=== PATIENT | male | born 1960 | race Caucasian/White ===

== ENCOUNTER → 2020-05-14 | Outpatient (CLI) | payer OTHER ==
[~2020-05-14] MED LIST: FENTANYL PF 250 MCG/5ML ONE; HYDR-3248 PO; MIDAZOLAM 1 MG/ML, 2ML ONE; OXYC80TA25 PO; PANT40TA6 PO
== END | disposition home or self-care (01) ==
LOC: STAR 14:11
PROVIDERS: ATTEND Emergency Medicine
DX: Z20.822 Contact with and (suspected) exposure to COVID-19 (principal)
CPT/HCPCS: U0003

== ENCOUNTER 2020-05-16 09:30 | Inpatient (IN) | payer OTHER ==
[~2020-05-16] VITALS: Ht 180.3 cm; Wt 93.3 kg
[~2020-05-16 09:30] MED LIST changes: -FENTANYL PF 250 MCG/5ML ONE; -MIDAZOLAM 1 MG/ML, 2ML ONE; -PANT40TA6 PO
[2020-05-16] MEDS ORDERED: KETOROLAC 60 MG/2 ML ONE (10:36)
[2020-05-16] MEDS ORDERED: TRANEXAMIC ACID 100 MG/ML, 10ML ONE (10:36)
[2020-05-16] MEDS ORDERED: VANCOMYCIN 1,000 MG ONE ×5 (10:37→13:08)
[2020-05-16] MEDS ORDERED: SODIUM CHLORIDE 0.9% 50 ML ONE (10:37)
[2020-05-16] MEDS ORDERED: EPINEPHRINE 1 MG/ML, 1ML ONE (10:37)
[2020-05-16] MEDS ORDERED: ROPIvacaine/PF 0.2%, 20 ML ONE (10:37)
[2020-05-16] MEDS ORDERED: TOBRAMYCIN SULFATE 1.2 GM IMP ONE (10:55)
[2020-05-16] MEDS ORDERED: LACTATED RINGERS 1,000 ML IV SCH (11:00)
[2020-05-16] MEDS ORDERED: CHLORHEXIDINE 15 ML UDC MM ONE (11:00)
[2020-05-16] MEDS ORDERED: PANT40TA6 PO (11:01)
[2020-05-16 11:32] LABS: INTERNATIONAL NORMALIZED RATIO 1.09 (0.93-1.1); PROTHROMBIN TIME 11.6 Seconds (9.6-11.5)
[2020-05-16] MEDS ORDERED: HYDROmorphone 2 MG/ML, 1ML ONE ×6 (11:43→15:59)
[2020-05-16] MEDS ORDERED: KETAMINE 10 MG/ML, 20ML ONE (11:44)
[2020-05-16] MEDS ORDERED: ACETAMINOPHEN 325 MG TABLET PO PRN (13:30)
[2020-05-16] MEDS ORDERED: EPHEDRINE 50 MG/ML, 1ML IVPush PRN (13:30)
[2020-05-16] MEDS ORDERED: MEPERIDINE/PF 25MG/0.5ML IVPush PRN (13:30)
[2020-05-16] MEDS ORDERED: PROMETHAZINE 25 MG/ML, 1ML IVPush PRN (13:30)
[2020-05-16] MEDS ORDERED: OXYcodone 5 MG/5 ML ORAL.SOL UDC PO PRN (13:30)
[2020-05-16] MEDS ORDERED: HALOPERIDOL 5 MG/ML IV PRN (13:30)
[2020-05-16] MEDS ORDERED: METOPROLOL 1 MG/ML, 5ML IV PRN (13:30)
[2020-05-16] MEDS ORDERED: DIPHENHYDRAMINE 50 MG/ML, 1ML IVPush PRN (13:30)
[2020-05-16] MEDS ORDERED: hydrALAzine 20 MG/ML, 1ML IV PRN (13:30)
[2020-05-16] MEDS ORDERED: METOCLOPRAMIDE 5 MG/ML, 2ML IVPush PRN (13:30)
[2020-05-16] MEDS ORDERED: LABETALOL 5MG/ML, 20ML IV PRN (13:30)
[2020-05-16] MEDS ORDERED: ONDANSETRON 2MG/ML, 2ML IVPush PRN (13:30)
[2020-05-16] MEDS ORDERED: METHOCARBAMOL 1,000 MG in DEXTROSE 5% 100 ML IV PRN (13:30)
[2020-05-16] MEDS ORDERED: OxyconTIN ER 40 MG TAB.ER PO ONE (14:00)
[2020-05-16] MEDS ORDERED: FENTANYL PF 100 MCG/2ML ONE ×4 (14:43→15:59)
[2020-05-16] MEDS: FENTANYL PF 100 MCG/2ML IV PRN ×5 (14:46→16:20)
[2020-05-16] MEDS: HYDROmorphone 1 MG/ML, 1ML INJ IVPush PRN ×8 (14:49→16:20)
[2020-05-16] MEDS ORDERED: DIAZEPAM 5 MG/ML, 2ML ONE (14:56)
[2020-05-16] MEDS: DIAZEPAM 5 MG/ML, 2ML IVPush PRN ×2 (14:59→15:14)
[2020-05-16] MEDS: ACETAMINOPHEN 325 MG TABLET PO SCH ×3 (15:00→22:47)
[2020-05-16] MEDS ORDERED: ONDANSETRON 4 MG TABLET PO PRN (15:00)
[2020-05-16] MEDS ORDERED: VANCOMYCIN PER PHARMACY MC PRN (15:00)
[2020-05-16] MEDS ORDERED: HYDROmorphone 1 MG/ML, 1ML INJ IV PRN ×2 (15:00→17:30)
[2020-05-16] MEDS ORDERED: OXYcodone IR 5MG TABLET PO PRN (15:00)
[2020-05-16] MEDS ORDERED: MEPERIDINE/PF 100 MG/ML ONE (15:25)
[2020-05-16] MEDS ORDERED: ACETAMINOPHEN 650 MG/20.3 ML UDC ONE (15:49)
[2020-05-16] MEDS ORDERED: OXYcodone 5 MG/5 ML ORAL.SOL UDC ONE ×2 (15:50→15:59)
[2020-05-16] MEDS ORDERED: PROPOFOL 10 MG/ML, 20ML ONE (16:08)
[2020-05-16] MEDS ORDERED: CEFAZOLIN 1,000 MG ONE (16:08)
[2020-05-16] MEDS ORDERED: hydrALAzine 20 MG/ML, 1ML ONE (16:08)
[2020-05-16] MEDS ORDERED: ONDANSETRON 2MG/ML, 2ML ONE (16:08)
[2020-05-16] MEDS ORDERED: DEXAMETHASONE 4 MG/ML, 1ML ONE (16:08)
[2020-05-16] MEDS ORDERED: KETOROLAC 30 MG/1 ML IM SCH (17:30)
[2020-05-16] MEDS ORDERED: PHARMACOKINETIC MONITORING MC PRN (18:00)
[2020-05-16] MEDS ORDERED: VANCOMYCIN PMX 1GM/200ML 200 ML IV ONE ×2 (18:00→21:00)
[2020-05-16] MEDS: POTASSIUM CHLORIDE 20 MEQ in D5%-0.45% NACL 1,000 ML IV SCH (18:39)
[2020-05-16] MEDS: KETOROLAC 30 MG/1 ML IVPush SCH (18:39)
[2020-05-16] MEDS ORDERED: KETOROLAC 30 MG/1 ML IVPush SCH ×2 (19:00→23:30)
[2020-05-16 19:02] VITALS: BP 130/82
[2020-05-16] MEDS: PANTOPRAZOLE 40MG TABLET PO SCH (20:16)
[2020-05-16] MEDS: OXYcodone IR 5MG TABLET PO PRN (20:16)
[2020-05-16] MEDS: DOCUSATE 100 MG CAPSULE PO SCH (20:16)
[2020-05-16] MEDS: CEFAZOLIN PMX 1GM/50ML 50 ML IVPB SCH (21:23)
[2020-05-16] MEDS: OxyconTIN ER 40 MG TAB.ER PO SCH (22:47)
[2020-05-17 00:14] VITALS: BP 147/85
[2020-05-17] MEDS: KETOROLAC 30 MG/1 ML IVPush SCH ×4 (00:55→20:48)
[2020-05-17] MEDS: OXYcodone IR 5MG TABLET PO PRN ×5 (01:33→21:06)
[2020-05-17] MEDS: ACETAMINOPHEN 325 MG TABLET PO SCH ×5 (03:02→20:47)
[2020-05-17 04:12] VITALS: BP 130/77
[2020-05-17] MEDS: ASPIRIN 81 MG TABLET EC PO SCH (05:37)
[2020-05-17] MEDS: POTASSIUM CHLORIDE 20 MEQ in D5%-0.45% NACL 1,000 ML IV SCH ×2 (05:37→20:00)
[2020-05-17] MEDS: CEFAZOLIN PMX 1GM/50ML 50 ML IVPB SCH (05:38)
[2020-05-17] MEDS: PANTOPRAZOLE 40MG TABLET PO SCH ×2 (05:38→20:47)
[2020-05-17 05:43] LABS: CREATININE 0.89 mg/dL (0.7-1.3)
[2020-05-17 08:00] VITALS: BP_SYST 139; BP_SYST 97; BP_DIAS 62; BP_DIAS 70
[2020-05-17] MEDS ORDERED: OxyconTIN ER 20 MG TAB.ER ONE ×2 (08:48→20:44)
[2020-05-17] MEDS: DOCUSATE 100 MG CAPSULE PO SCH ×2 (08:56→21:00)
[2020-05-17] MEDS: OxyconTIN ER 40 MG TAB.ER PO SCH ×2 (08:56→20:47)
[2020-05-17] MEDS ORDERED: VANCOMYCIN 1,700 MG in SODIUM CHLORIDE 0.9% 250 ML IV SCH (10:00)
[2020-05-17 11:49] LABS: HCT (SEDRATE) 26.3 % (39.2-51.8)
[2020-05-17 11:50] LABS: BASOPHILS % (AUTO) 0 % (0-1); EOSINOPHILS % (AUTO) 1 % (1-7); LYMPHOCYTES % (AUTO) 13 % (22-44); MEAN CORPUSCULAR HEMOGLOBIN 27.5 pg (27.5-34.5); MEAN CORPUSCULAR HGB CONC 33.9 g/dL (33.2-36.2); MEAN PLATELET VOLUME 6.8 fL (7.4-10.4); MONOCYTES % (AUTO) 7 % (2-9); NEUTROPHILS % (AUTO) 79 % (42-75); PLATELET COUNT 439 x10^3/uL (130-400); RED BLOOD COUNT 3.12 x10^6/uL (4.38-5.82); RED CELL DISTRIBUTION WIDTH 13.7 % (9.4-14.8)
[2020-05-17 11:55] LABS: MD NO
[2020-05-17 12:06] LABS: ALBUMIN 2.8 g/dL (3.4-5.0); ANION GAP 6 mmol/L (5-15); CALCIUM 9.5 mg/dL (8.5-10.1); CHLORIDE 105 mmol/L (98-107)
[2020-05-17 12:19] LABS: ALANINE AMINOTRANSFERASE 15 U/L (12-78); ALKALINE PHOSPHATASE 44 U/L (45-117); BILIRUBIN,TOTAL 0.3 mg/dL (0.2-1.0); CREATININE 0.83 mg/dL (0.7-1.3)
[2020-05-17 12:27] VITALS: BP 144/72
[2020-05-17] MEDS: DAPTOMYCIN 700 MG in SODIUM CHLORIDE 0.9% 100 ML IVPB SCH ×2 (12:28→12:42)
[2020-05-17 19:07] VITALS: BP 147/84
[2020-05-17] MEDS: GABAPENTIN 300 MG CAPSULE PO PRN (22:07)
[2020-05-18] MEDS: KETOROLAC 30 MG/1 ML IVPush SCH ×4 (01:44→20:06)
[2020-05-18] MEDS: OXYcodone IR 5MG TABLET PO PRN ×6 (01:44→23:30)
[2020-05-18] MEDS: ACETAMINOPHEN 325 MG TABLET PO SCH ×6 (01:44→23:30)
[2020-05-18 01:58] VITALS: BP 139/85
[2020-05-18] MEDS: POTASSIUM CHLORIDE 20 MEQ in D5%-0.45% NACL 1,000 ML IV SCH ×2 (06:06→13:07)
[2020-05-18] MEDS: ASPIRIN 81 MG TABLET EC PO SCH (06:23)
[2020-05-18] MEDS: PANTOPRAZOLE 40MG TABLET PO SCH ×2 (06:23→20:06)
[2020-05-18 07:29] VITALS: BP 130/80
[2020-05-18] MEDS: DOCUSATE 100 MG CAPSULE PO SCH ×2 (07:58→20:06)
[2020-05-18] MEDS: OxyconTIN ER 40 MG TAB.ER PO SCH ×2 (07:58→21:11)
[2020-05-18] MEDS ORDERED: POLYETHYLENE GLYCOL 17 GM PACKET PO PRN (08:30)
[2020-05-18] MEDS ORDERED: MAGNESIUM HYDROXIDE 8%, 30ML UDC PO PRN (08:30)
[2020-05-18 12:21] VITALS: BP 122/73
[2020-05-18] MEDS: DAPTOMYCIN 700 MG in SODIUM CHLORIDE 0.9% 100 ML IVPB SCH (13:07)
[2020-05-18 19:20] VITALS: BP 127/83
[2020-05-19 00:03] VITALS: BP 122/79
[2020-05-19] MEDS: POTASSIUM CHLORIDE 20 MEQ in D5%-0.45% NACL 1,000 ML IV SCH ×3 (02:18→22:30)
[2020-05-19] MEDS: KETOROLAC 30 MG/1 ML IVPush SCH ×5 (03:30→22:47)
[2020-05-19] MEDS: ACETAMINOPHEN 325 MG TABLET PO SCH ×5 (03:39→21:17)
[2020-05-19] MEDS: OXYcodone IR 5MG TABLET PO PRN ×6 (03:39→21:16)
[2020-05-19 04:51] LABS: BASOPHILS % (AUTO) 1 % (0-1); EOSINOPHILS % (AUTO) 6 % (1-7); LYMPHOCYTES % (AUTO) 38 % (22-44); MEAN CORPUSCULAR HEMOGLOBIN 27.8 pg (27.5-34.5); MEAN CORPUSCULAR HGB CONC 34.1 g/dL (33.2-36.2); MEAN PLATELET VOLUME 6.2 fL (7.4-10.4); MONOCYTES % (AUTO) 9 % (2-9); NEUTROPHILS % (AUTO) 47 % (42-75); PLATELET COUNT 439 x10^3/uL (130-400); RED BLOOD COUNT 3.28 x10^6/uL (4.38-5.82)
[2020-05-19 04:52] LABS: MD NO
[2020-05-19 04:57] LABS: ALANINE AMINOTRANSFERASE 15 U/L (12-78); ALBUMIN 2.5 g/dL (3.4-5.0); ANION GAP 9 mmol/L (5-15); CALCIUM 9.6 mg/dL (8.5-10.1); CHLORIDE 105 mmol/L (98-107); CREATININE 0.96 mg/dL (0.7-1.3)
[2020-05-19 05:00] LABS: ALKALINE PHOSPHATASE 41 U/L (45-117); BILIRUBIN,TOTAL 0.2 mg/dL (0.2-1.0); TOTAL PROTEIN 6.4 g/dL (6.4-8.2)
[2020-05-19] MEDS: ASPIRIN 81 MG TABLET EC PO SCH (06:23)
[2020-05-19] MEDS: PANTOPRAZOLE 40MG TABLET PO SCH ×2 (06:23→21:16)
[2020-05-19 07:40] VITALS: BP 125/82
[2020-05-19] MEDS: DOCUSATE 100 MG CAPSULE PO SCH ×2 (08:07→21:17)
[2020-05-19] MEDS: OxyconTIN ER 40 MG TAB.ER PO SCH ×2 (08:08→21:16)
[2020-05-19 13:59] VITALS: BP 118/77
[2020-05-19] MEDS: DAPTOMYCIN 700 MG in SODIUM CHLORIDE 0.9% 100 ML IVPB SCH (16:41)
[2020-05-19 19:55] VITALS: BP 136/85
[2020-05-19] MEDS: GABAPENTIN 300 MG CAPSULE PO PRN (22:47)
[2020-05-20] MEDS: ACETAMINOPHEN 325 MG TABLET PO SCH ×4 (01:09→14:37)
[2020-05-20] MEDS: OXYcodone IR 5MG TABLET PO PRN ×5 (01:09→17:56)
[2020-05-20 02:38] VITALS: BP 121/78
[2020-05-20] MEDS: KETOROLAC 30 MG/1 ML IVPush SCH ×4 (05:25→16:40)
[2020-05-20] MEDS: PANTOPRAZOLE 40MG TABLET PO SCH (05:26)
[2020-05-20] MEDS: ASPIRIN 81 MG TABLET EC PO SCH (05:26)
[2020-05-20 05:51] LABS: HCT (SEDRATE) 25.7 % (39.2-51.8)
[2020-05-20 05:53] LABS: BASOPHILS % (AUTO) 1 % (0-1); EOSINOPHILS % (AUTO) 7 % (1-7); LYMPHOCYTES % (AUTO) 41 % (22-44); MEAN CORPUSCULAR HEMOGLOBIN 27.2 pg (27.5-34.5); MEAN CORPUSCULAR HGB CONC 33.5 g/dL (33.2-36.2); MEAN PLATELET VOLUME 6.4 fL (7.4-10.4); MONOCYTES % (AUTO) 8 % (2-9); NEUTROPHILS % (AUTO) 44 % (42-75); PLATELET COUNT 455 x10^3/uL (130-400); RED BLOOD COUNT 3.16 x10^6/uL (4.38-5.82); RED CELL DISTRIBUTION WIDTH 13.6 % (9.4-14.8)
[2020-05-20 06:00] LABS: ALANINE AMINOTRANSFERASE 15 U/L (12-78); ALBUMIN 2.5 g/dL (3.4-5.0); ANION GAP 7 mmol/L (5-15); CALCIUM 9.5 mg/dL (8.5-10.1); CHLORIDE 106 mmol/L (98-107); CREATININE 0.99 mg/dL (0.7-1.3)
[2020-05-20 06:07] LABS: ALKALINE PHOSPHATASE 39 U/L (45-117); BILIRUBIN,TOTAL 0.2 mg/dL (0.2-1.0); TOTAL PROTEIN 6.2 g/dL (6.4-8.2)
[2020-05-20 06:08] LABS: MD NO
[2020-05-20] MEDS: POTASSIUM CHLORIDE 20 MEQ in D5%-0.45% NACL 1,000 ML IV SCH ×2 (07:37→16:40)
[2020-05-20 07:43] VITALS: BP 133/83
[2020-05-20] MEDS: OxyconTIN ER 40 MG TAB.ER PO SCH (08:34)
[2020-05-20] MEDS: DOCUSATE 100 MG CAPSULE PO SCH (08:34)
[2020-05-20] MEDS ORDERED: OXYC5TAB98 PO (09:06)
[2020-05-20] MEDS ORDERED: HYDR-826 PO (09:06)
[2020-05-20 13:45] VITALS: BP 136/82
[2020-05-20] MEDS: DAPTOMYCIN 700 MG in SODIUM CHLORIDE 0.9% 100 ML IVPB SCH (16:40)
[2020-05-20] MEDS ORDERED: ASPI-963 PO ×3 (17:17→17:23)
[2020-05-20 18:08] VITALS: BP 160/98
== END 2020-05-20 18:22 | disposition home health service (06) | DRG 467 ==
LOC: ORIP 10:36 → 4NE 16:49
PROVIDERS: ADMIT Orthopaedic Surgery; ATTEND Orthopaedic Surgery
PROC: 0SPC0JZ Removal of Synthetic Substitute from Right Knee Joint, Open Approach (ICD-10-PCS; 2020-05-16)
PROC: 0SRC0J9 Replacement of Right Knee Joint with Synthetic Substitute, Cemented, Open Approach (ICD-10-PCS; 2020-05-16)
PROC: 02HV33Z Insertion of Infusion Device into Superior Vena Cava, Percutaneous Approach (ICD-10-PCS; principal; 2020-05-20)
PROC: B548ZZA Ultrasonography of Superior Vena Cava, Guidance (ICD-10-PCS; 2020-05-20)
DX: T84.53XA Infection and inflammatory reaction due to internal right knee prosthesis, initial encounter (principal); F11.20 Opioid dependence, uncomplicated; D63.8 Anemia in other chronic diseases classified elsewhere; G89.29 Other chronic pain; M19.90 Unspecified osteoarthritis, unspecified site; Y83.1 Surgical operation with implant of artificial internal device as the cause of abnormal reaction of the patient, or of later complication, without mention of misadventure at the time of the procedure; Z96.643 Presence of artificial hip joint, bilateral; M25.461 Effusion, right knee; M54.9 Dorsalgia, unspecified; D72.829 Elevated white blood cell count, unspecified
CPT/HCPCS: 36415; 73560; J3260; 36573; 80053; 80202; 82550; 82565; 85025; 85610; 85651; 85730; 86140; 87040; 87070; 87075; 87176; 87205; 93005; C1713; G0378; J0171; J0690; J0878; J1100; J1170; J1885; J2175; J2250; J2405; J2704; J2795; J3010; J3360; J3370; J3480; C1751; C1776; J0360; J2800; J7050; Q0177

== ENCOUNTER → 2020-09-09 | Outpatient (CLI) | payer OTHER ==
[~2020-09-09] MED LIST changes: +ASCO100018 PO; +ASPI-963 PO; +CHOL10003 PO; +GABA300C PO; +HYDR-826 PO; +IRON PO; +MULT-658 PO; +OXYC10TA6 PO; +OXYC5TAB98 PO; +PANT40TA6 PO; +SERT50TA28 PO; +ZINC PO
[2020-09-09 14:54] LABS: BASOPHILS % (AUTO) 1 % (0-1); EOSINOPHILS % (AUTO) 3 % (1-7); LYMPHOCYTES % (AUTO) 34 % (22-44); MEAN CORPUSCULAR HEMOGLOBIN 28.9 pg (27.5-34.5); MEAN CORPUSCULAR HGB CONC 33.8 g/dL (33.2-36.2); MEAN PLATELET VOLUME 6.6 fL (7.4-10.4); MONOCYTES % (AUTO) 7 % (2-9); NEUTROPHILS % (AUTO) 55 % (42-75); PLATELET COUNT 314 x10^3/uL (130-400); RED BLOOD COUNT 4.34 x10^6/uL (4.38-5.82); RED CELL DISTRIBUTION WIDTH 15.4 % (9.4-14.8)
[2020-09-09 14:56] LABS: MD NO
[2020-09-09 15:06] LABS: ANION GAP 6 mmol/L (5-15); CALCIUM 8.8 mg/dL (8.5-10.1); CHLORIDE 107 mmol/L (98-107); CREATININE 0.96 mg/dL (0.7-1.3)
== END | disposition home or self-care (01) ==
LOC: STAR 13:55
PROVIDERS: ATTEND Orthopaedic Surgery
DX: Z01.810 Encounter for preprocedural cardiovascular examination (principal); Z01.818 Encounter for other preprocedural examination; T84.53XD Infection and inflammatory reaction due to internal right knee prosthesis, subsequent encounter; R94.31 Abnormal electrocardiogram [ECG] [EKG]; X58.XXXD Exposure to other specified factors, subsequent encounter; Z20.822 Contact with and (suspected) exposure to COVID-19; Z96.651 Presence of right artificial knee joint
CPT/HCPCS: 36415; 80048; 85025; 87081; 93005; U0003; U0005